=== PATIENT | male | born 1950 | race Caucasian/White ===

== ENCOUNTER 2018-12-17 15:21 | Inpatient (IN) | payer BC, MEDICARE | END 2019-01-11 15:06 | LOC: ICU 2S 12-26 17:45 → ER 15:21 → ED HOLD 16:08 → ICU 2S 19:40 ==

== ENCOUNTER 2019-01-29 20:23 | Emergency (ER) | payer BC, MEDICARE ==
[~2019-01-29] VITALS: Ht 188 cm; Wt 120.0 kg
[~2019-01-29 20:23] MED LIST: ACET160O2 PO; ALBU2.5V7 NEB; AMIO200T40 PO; DIGO-27 PO; DYR50C PO; ENOX40DI11 SUBCUT; FURO40TA4 PO; HYDR-3972 PO; INSU100V30 SQ; LANTUS SQ; LEVO100T9 PO; METO100T14 PO; NALO0.4V13 IV; PANT-47 PO; POLY17PO36 PO
[2019-01-29] MEDS ORDERED: ibuprofen tablet 400 MG TABLET PO ONE (20:45)
[2019-01-29] MEDS ORDERED: ibuprofen 200mg tablet PO ONE (20:50)
[2019-01-29 21:11] VITALS: BP 128/71
== END 2019-01-29 21:18 | disposition home or self-care (01) ==
LOC: ER 20:23
DX: R51 Headache (principal); H53.8 Other visual disturbances; I10 Essential (primary) hypertension; I48.91 Unspecified atrial fibrillation; E11.9 Type 2 diabetes mellitus without complications; Z79.4 Long term (current) use of insulin; Z79.899 Other long term (current) drug therapy; Z56.0 Unemployment, unspecified
CPT/HCPCS: 99283